=== PATIENT | male | born 1940 | race Caucasian/White ===

== ENCOUNTER 2018-01-08 05:15 | Emergency (ER) | payer MEDICARE ==
[2018-01-08] MEDS ORDERED: NS(*) 0.9% 1000 ML BAG 1,000 ML IV ONE (05:18)
--- NOTE | 2018-01-08 05:18 | ER Report ---
History and Physical Time Seen By MD: 05:18 (RENE SERNA DO) HPI/ROS CHIEF COMPLAINT: Fall, weakness, unable to get up HISTORY OF PRESENT ILLNESS: 77-year-old male with a history of COPD visiting from [place] fell yesterday but was not injured. He proceeded ago and spent time [facility]. He was only complaining of some mild back pain. Last night he got up to go to the bathroom and fell again. Now he's having diarrhea. He fell and was too weak to get up. They called 911 to come pick him up. Patient denies chest pain or shortness of breath. He appears mildly confused. EMS notes he was wearing no oxygen. His room air pulse ox was in the 87-88 range. 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 Patient on arrival is in good spirits and alert and responsive to questions. Will follow simple commands. He does not know the date. He thinks it yesterday. 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 He is prone to falling REVIEW OF SYSTEMS: Respiratory: No cough, no dyspnea. Cardiovascular: No chest pain, no palpitations. Gastrointestinal: As above Musculoskeletal: As above (RENE SERNA DO) Allergies: Coded Allergies: doxycycline (Verified Allergy, Intermediate, ITCHING, 01/08/18) levofloxacin (Verified Allergy, Intermediate, ITCHING, 01/08/18) fluticasone (Verified Adverse Reaction, Intermediate, SEVERE HEADACHE, ) salmeterol (Verified Adverse Reaction, Intermediate, SEVERE HEADACHE, 01/08) codeine (Verified Adverse Reaction, Unknown, CONFUSION, 01/08/18) metoclopramide (Verified Adverse Reaction, Unknown, DIARRHEA, 01/08/18) Home Meds Reported Medications Nortriptyline Hcl (NORTRIPTYLINE HCL) 50 Mg Capsule, 50 MG PO HS, CAPSULE 01/08/18 Lactulose (LACTULOSE) 10 Gm/15 Ml Solution, 10 GM PO BID 01/08/18 Doxazosin Mesylate (DOXAZOSIN MESYLATE) 2 Mg Tablet, 2 MG PO QPM 01/08/18 Divalproex Sodium (DIVALPROEX SODIUM ER) 500 Mg Tab.er.24h, 500 MG PO QAM, TAB 01/08/18 Butalbital/Aspirin/Caffeine (Dmbaps-Iozeksd-Hkqax 50-325-40) 50 Mg-325 Mg-40 Mg Tablet, 1 TAB PO PRN 01/08/18 Budesonide/Formoterol Fumarate (SYMBICORT 160-4.5 MCG INHALER) 10.2 Gm Inh, 2 INHALATION PO BID, INH 01/08/18 Albuterol Sulfate 90 Mcg/Act (PROAIR HFA 90 MCG/ACT) 8.5 Gm Hfa.aer.ad, 1 PUFF IH BID, INHALER 01/08/18 Tramadol Hcl (TRAMADOL HCL) 50 Mg Tablet, 50 MG PO BID, TAB 01/08/18 Tizanidine Hcl (TIZANIDINE HCL) 4 Mg Tablet, 4 MG PO HS 01/08/18 Simvastatin (SIMVASTATIN) 20 Mg Tablet, 20 MG PO HS, TAB 01/08/18 Omeprazole (OMEPRAZOLE) 40 Mg Capsule.dr, 40 MG PO BID, CAP 01/08/18 Ipratropium/Albuterol Sulfate (IPRAT-ALBUT 0.5-3(2.5) MG/3 ML) 3 Ml Ampul.neb, 3 ML IH BID 01/08/18 Gabapentin (GABAPENTIN) 300 Mg Capsule, 400 MG PO TID, CAPSULE 01/08/18 Fluticasone Prop 50 Mcg Ns (FLONASE 50 MCG NS) 16 Gm [place].susp, 1 SPRAY NS BID , BOT 01/08/18 Fexofenadine Hcl (FEXOFENADINE HCL) 180 Mg Tablet, 180 MG PO QDAY 01/08/18 Budesonide (BUDESONIDE) 0.5 Mg/2 Ml Ampul.neb, 0.5 MG IH BID, ML 01/08/18 Azathioprine (AZATHIOPRINE) 50 Mg Tablet, 50 MG PO TID 01/08/18 Aspirin (ASPIR 81) 81 Mg Tablet.dr, 81 MG PO QDAY, TAB 01/08/18 Past Medical/Surgical History COPD, chronic pain syndrome, back pain, hyperlipidemia, GERD, polyneuropathy, immunosuppression, allergic rhinitis (RENE SERNA DO) Reviewed Nurses Notes: Yes Old Medical Records Reviewed: Yes (RENE SERNA DO) Constitutional Vital Sign - Last 24 Hours 01/08/18 01/08/18 01/08/18 01/08/18 05:17 05:29 06:15 07:00 Temp 98.7 Pulse 104 108 104 Resp 17 32 24 B/P (MAP) 136/69 128/62 (84) Pulse Ox 90 95 O2 Delivery Room Air O2 Flow Rate 3.0 01/08/18 01/08/18 01/08/18 01/08/18 07:59 08:30 09:00 09:30 Pulse 105 109 95 96 Resp 18 25 27 32 B/P (MAP) 128/62 (84) 141/93 (109) 132/63 (86) 120/65 (83) Pulse Ox 86 66 O2 Delivery Room Air Intake and Output 01/08/18 01/08/18 01/09/18 15:00 23:00 07:00 Intake Total 1000 ml Balance 1000 ml (NICK QUINTANA MD) Physical Exam General Appearance: The patient is alert, has no immediate need for airway protection and no current signs of toxicity. Vital signs stable, afebrile, pulse ox 90% on 2 L by EMS, there is diarrhea staining on the EMS betting HEENT: Pupils equal and round no injection. TMs normal, oropharynx with moderate erythema, dry appearing mucous membranes Respiratory: Chest is non tender, lungs are clear to auscultation. Distant wheezing and decreased Cardiac: regular rate and rhythm Gastrointestinal: Abdomen is soft and non tender, no masses, bowel sounds normal. Musculoskeletal: Neck: Neck is supple and non tender. No JVD, no lymphadenopathy Extremities have full range of motion and are non tender. No edema, no calf tenderness Skin: No rashes or lesions. DIFFERENTIAL DIAGNOSIS: After history and physical exam differential diagnosis was considered for altered mental status including but not limited to hypoglycemia, hypoxia, CO2 retention, dehydration, infectious process, electrolyte abnormality, head injury and intoxicants. (RENE SERNA DO) Medical Decision Making Data Points Result Diagram: 01/08/18 0621 01/08/18 0621 Laboratory Hematology Test 01/08/18 00:00 01/08/18 05:34 01/08/18 06:21 Urine Color Yellow Urine Clarity Clear Urine pH 6.0 pH (4.8-9.5) Urine Specific [place] 1.023 Urine Protein Negative mg/dL (NEGATIVE) Urine Glucose (UA) Negative mg/dL (NEGATIVE) Urine Ketones Trace mg/dL (NEGATIVE) Urine Blood Negative (NEGATIVE) Urine Nitrite Negative (NEGATIVE) Urine Bilirubin Negative (NEGATIVE) Urine Urobilinogen Negative mg/dL (0.2-1.9) Urine Leukocyte Esterase Negative (NEGATIVE) Urine RBC None /HPF (0-2/HPF) Urine WBC 2 /HPF (0-5/HPF) Urine Squamous Epithelial Cells Moderate /LPF (</=FEW) Urine Bacteria Few /HPF (NONE-FEW) Urine Mucus None /HPF (NONE-FEW) Urine Opiates Screen Negative Urine Barbiturates Screen Negative Ur Tricyclic Antidepressants Screen Positive Urine Phencyclidine Screen Negative Urine Amphetamines Screen Negative Urine Benzodiazepines Screen Negative Urine Cocaine Screen Negative Urine Cannabinoids Screen Negative Whole Blood Glucose 158 mg/DL (75-110) Red Blood Count 4.31 M/uL (4.00-5.60) Mean Corpuscular Volume 90.2 fL (80.0-96.0) Mean Corpuscular Hemoglobin 30.7 pg (26.0-33.0) Mean Corpuscular Hemoglobin Concent 34.1 g/dL (32.0-36.0) Red Cell Distribution Width 15.7 % (11.5-14.5) Mean Platelet Volume 7.7 fL (7.2-11.1) Neutrophils (%) (Auto) 87.8 % (39.4-72.5) Lymphocytes (%) (Auto) 5.5 % (17.6-49.6) Monocytes (%) (Auto) 6.1 % (4.1-12.4) Eosinophils (%) (Auto) 0.1 % (0.4-6.7) Basophils (%) (Auto) 0.5 % (0.3-1.4) Nucleated RBC Relative Count (auto) 0.0 /100WBC Neutrophils # (Auto) 11.3 K/uL (2.0-7.4) Lymphocytes # (Auto) 0.7 K/uL (1.3-3.6) Monocytes # (Auto) 0.8 K/uL (0.3-1.0) Eosinophils # (Auto) 0.0 K/uL (0.0-0.5) Basophils # (Auto) 0.1 K/uL (0.0-0.1) Nucleated RBC Absolute Count (auto) 0.00 K/uL Blood Gas Puncture Site Left radial Blood Gas Patient Temperature 98.7 DEGREES Arterial Blood pH 7.45 (7.35-7.45) Arterial Blood Partial Pressure CO2 35 mmHg (32-37) Arterial Blood Partial Pressure O2 69 mmHg (60-80) Arterial Blood HCO3 25 mmol/L (20-26) Arterial Blood Oxygen Saturation 95 % (92-100) Arterial Blood Base Excess 1.0 mmol/L [place] Test Acceptable Carboxyhemoglobin 0.6 % (< 5.0) Oxygen Liters/Minute 3 l Sodium Level 142 mmol/L (137-145) Potassium Level 3.8 mmol/L (3.5-5.0) Chloride Level 103 mmol/L (98-107) Carbon Dioxide Level 25 mmol/L (22-30) Blood Urea Nitrogen 20 mg/dl (9-21) Creatinine 1.00 mg/dl (0.66-1.25) Glomerular Filtration Rate Calc > 60.0 Random Glucose 116 mg/dl (75-110) Calcium Level 8.2 mg/dl (8.4-10.2) Total Bilirubin 0.6 mg/dl (0.2-1.3) Aspartate Amino Transf (AST/SGOT) 28 U/L (0-35) Alanine Aminotransferase (ALT/SGPT) 20 U/L (0-56) Alkaline Phosphatase 46 U/L (0-126) Ammonia 11 UMOL/L (9-33) Troponin I 0.027 ng/ml Total Protein 6.4 g/dl (6.3-8.2) Albumin 3.7 g/dl (3.5-5.0) Valproic Acid (Depakene) Level < 10.0 ug/ml Serum Alcohol < 10 mg/dl Chemistry Test 01/08/18 00:00 01/08/18 05:34 01/08/18 06:21 Urine Color Yellow Urine Clarity Clear Urine pH 6.0 pH (4.8-9.5) Urine Specific [place] 1.023 Urine Protein Negative mg/dL (NEGATIVE) Urine Glucose (UA) Negative mg/dL (NEGATIVE) Urine Ketones Trace mg/dL (NEGATIVE) Urine Blood Negative (NEGATIVE) Urine Nitrite Negative (NEGATIVE) Urine Bilirubin Negative (NEGATIVE) Urine Urobilinogen Negative mg/dL (0.2-1.9) Urine Leukocyte Esterase Negative (NEGATIVE) Urine RBC None /HPF (0-2/HPF) Urine WBC 2 /HPF (0-5/HPF) Urine Squamous Epithelial Cells Moderate /LPF (</=FEW) Urine Bacteria Few /HPF (NONE-FEW) Urine Mucus None /HPF (NONE-FEW) Urine Opiates Screen Negative Urine Barbiturates Screen Negative Ur Tricyclic Antidepressants Screen Positive Urine Phencyclidine Screen Negative Urine Amphetamines Screen Negative Urine Benzodiazepines Screen Negative Urine Cocaine Screen Negative Urine Cannabinoids Screen Negative Whole Blood Glucose 158 mg/DL (75-110) White Blood Count 12.8 k/uL (4.5-11.0) Red Blood Count 4.31 M/uL (4.00-5.60) Hemoglobin 13.3 g/dL (14.0-18.0) Hematocrit 38.9 % (42.0-52.0) Mean Corpuscular Volume 90.2 fL (80.0-96.0) Mean Corpuscular Hemoglobin 30.7 pg (26.0-33.0) Mean Corpuscular Hemoglobin Concent 34.1 g/dL (32.0-36.0) Red Cell Distribution Width 15.7 % (11.5-14.5) Platelet Count 169 K/uL (150-450) Mean Platelet Volume 7.7 fL (7.2-11.1) Neutrophils (%) (Auto) 87.8 % (39.4-72.5) Lymphocytes (%) (Auto) 5.5 % (17.6-49.6) Monocytes (%) (Auto) 6.1 % (4.1-12.4) Eosinophils (%) (Auto) 0.1 % (0.4-6.7) Basophils (%) (Auto) 0.5 % (0.3-1.4) Nucleated RBC Relative Count (auto) 0.0 /100WBC Neutrophils # (Auto) 11.3 K/uL (2.0-7.4) Lymphocytes # (Auto) 0.7 K/uL (1.3-3.6) Monocytes # (Auto) 0.8 K/uL (0.3-1.0) Eosinophils # (Auto) 0.0 K/uL (0.0-0.5) Basophils # (Auto) 0.1 K/uL (0.0-0.1) Nucleated RBC Absolute Count (auto) 0.00 K/uL Blood Gas Puncture Site Left radial Blood Gas Patient Temperature 98.7 DEGREES Arterial Blood pH 7.45 (7.35-7.45) Arterial Blood Partial Pressure CO2 35 mmHg (32-37) Arterial Blood Partial Pressure O2 69 mmHg (60-80) Arterial Blood HCO3 25 mmol/L (20-26) Arterial Blood Oxygen Saturation 95 % (92-100) Arterial Blood Base Excess 1.0 mmol/L [place] Test Acceptable Carboxyhemoglobin 0.6 % (< 5.0) Oxygen Liters/Minute 3 l Glomerular Filtration Rate Calc > 60.0 Calcium Level 8.2 mg/dl (8.4-10.2) Total Bilirubin 0.6 mg/dl (0.2-1.3) Aspartate Amino Transf (AST/SGOT) 28 U/L (0-35) Alanine Aminotransferase (ALT/SGPT) 20 U/L (0-56) Alkaline Phosphatase 46 U/L (0-126) Ammonia 11 UMOL/L (9-33) Troponin I 0.027 ng/ml Total Protein 6.4 g/dl (6.3-8.2) Albumin 3.7 g/dl (3.5-5.0) Valproic Acid (Depakene) Level < 10.0 ug/ml Serum Alcohol < 10 mg/dl Toxicology Test 01/08/18 00:00 01/08/18 06:21 Urine Opiates Screen Negative Urine Barbiturates Screen Negative Ur Tricyclic Antidepressants Screen Positive Urine Phencyclidine Screen Negative Urine Amphetamines Screen Negative Urine Benzodiazepines Screen Negative Urine Cocaine Screen Negative Urine Cannabinoids Screen Negative Valproic Acid (Depakene) Level < 10.0 ug/ml Serum Alcohol < 10 mg/dl Urinalysis Test 01/08/18 00:00 Urine Color Yellow Urine Clarity Clear Urine pH 6.0 pH (4.8-9.5) Urine Specific [place] 1.023 Urine Protein Negative mg/dL (NEGATIVE) Urine Glucose (UA) Negative mg/dL (NEGATIVE) Urine Ketones Trace mg/dL (NEGATIVE) Urine Blood Negative (NEGATIVE) Urine Nitrite Negative (NEGATIVE) Urine Bilirubin Negative (NEGATIVE) Urine Urobilinogen Negative mg/dL (0.2-1.9) Urine Leukocyte Esterase Negative (NEGATIVE) Urine RBC None /HPF (0-2/HPF) Urine WBC 2 /HPF (0-5/HPF) Urine Squamous Epithelial Cells Moderate /LPF (</=FEW) Urine Bacteria Few /HPF (NONE-FEW) Urine Mucus None /HPF (NONE-FEW) (NICK QUINTANA MD) Microbiology Microbiology Date/Time Source Procedure Growth Status 01/08/18 06:30 Blood Peripheral Draw Blood Culture - Preliminary NO GROWTH SO FAR, SET LATE. REINCUBATED Resulted 01/08/18 06:21 Blood Peripheral Draw Blood Culture - Preliminary NO GROWTH SO FAR, SET LATE. REINCUBATED Resulted (NICK QUINTANA MD) EKG/Imaging EKG Interpretation 12 lead EK Rhythm: Sinus tachycardia, rate 110 bpm [place]: normal QRS: normal ST segments: Diffuse nonspecific ST-T wave changes, no gross evidence of ischemia, no old EKGs for comparison Imaging X-ray: Single view portable chest x-ray was obtained. I viewed the images myself on the PACS system. My interpretation of the images is: No Infiltrate, no effusion, normal mediastinum, there is some fluid or atelectasis in the right midlung field. The radiologist interpretation had no clinically significant variation from this interpretation. (RENE SERNA DO) Imaging HISTORY: Altered mental status and weakness DATE: 01/08/2018 5:18 AM TECHNIQUE: CHEST SINGLE AP COMPARISON: none FINDINGS: The cardiomediastinal silhouette is of normal size and contour. No pleural effusion. No pneumothorax. No consolidation. Minimal right midlung atelectasis and trace left basilar atelectasis. IMPRESSION: Minimal atelectasis but no focal pneumonia. Report Dictated By: Tera Poole MD at 01/08/2018 6:[address] OF THE BRAIN WITHOUT CONTRAST HISTORY: Altered mental status and weakness PROCEDURE: 3.0 mm contiguous axial sections were performed through the brain. Sagittal and coronal reformats were submitted. COMPARISON: None FINDINGS: BRAIN: Brain and intracranial structures: The right-sided cochlear implant results in marked streak artifact. There is mild to moderate diffuse cerebral volume loss with prominence of the frontal extra-axial space but no blood. There is no mass lesion or CT evidence of acute infarct. The ventricles are normal in size. Orbits (included portions): Unremarkable Scalp: Normal. Skull: No acute findings. Paranasal sinuses and mastoid air cells (included portions): The medial maxillary sinus gonzalez have been resected as have many of the ethmoid air cells. There is persistent mild mucosal thickening in the maxillary sinuses and remaining ethmoid sinuses. IMPRESSION: No evidence of acute intracranial abnormality by CT with significant streak artifact from a cochlear implant on the right. One of the following dose optimization techniques was utilized in the performance of this exam: Automated exposure control; adjustment of the mA and/ or kV according to the patient's size; or use of an iterative reconstruction technique. Specific details can be referenced in the facility's radiology CT exam operational policy. Report Dictated By: Tera Poole MD at 01/08/2018 6:36 AM (NICK QUINTANA MD) ED Course/Re-evaluation Clinical Indication for ER IV: Hydration, IV Access ED Course Patient was admitted to an examination room by EMS. H&P was done. The dental diagnoses was considered. Patient was stable vital signs, requiring minimal O2 for saturations in the low 90s. Patient does have a known history of COPD and is from [facility]. Patient's been having episodes of diarrhea. Yesterday he fell and sustained no injury and was able to attend the [facility]. He fell again tonight with generalized weakness. Likely mild dehydration from his diarrhea. He is mildly hypoxic. Patient does have a history of a cochlear implant. Patient voices no chest pain, no shortness of breath, no fever, no chills, no productive cough. Diagnostic evaluation is undertaken. Patient's treated with IV fluid hydration. Care is turned over to Dr. Quintana at shift change with diagnostic studies pending. (RENE SERNA DO) ED Course I reviewed this patient with Dr. Serna at sign out at shift change this morning. This is a 77 year old male. He is having increasing weakness and fell last night and was unable to get up. He is visiting from out of town. He was mildly hypoxic. He and his have been having some diarrhea as well and mildly dehydrated. At sign-out, awaiting the rest of the laboratory studies and re-evaluation. The labs have returned and show a pre-renal picture with a BUN of 20 and Cr of 1.00. Mild elevation of white blood cell count. Normal CT scan and chest x-ray. Reviewed all of this with the patient. He was able to get up to the bathroom. Was a little wobbly, but felt better. After talking with the patient and family , he will be discharged with supplemental oxygen until he gets back to [place] and will rest and increase fluids. Decision to Disposition Date: Jan 08, 2018 Decision to Disposition Time: 08:14 (NICK QUINTANA MD) Depart Departure Latest Vital Signs Vital Signs Date Time Temp Pulse Resp B/P (MAP) Pulse Ox O2 Delivery O2 Flow Rate FiO2 01/08/18 09:30 96 32 120/65 (83) 01/08/18 08:30 66 01/08/18 07:59 Room Air 01/08/18 05:29 3.0 01/08/18 05:17 98.7 (NICK QUINTANA MD) Impression: Primary Impression: Dehydration Additional Impressions: Hypoxia High altitude sickness COPD (chronic obstructive pulmonary disease) Condition: Improved Disposition: HOME OR SELF-CARE Patient Instructions: Dehydration (ED), Hypoxia (ED), Mountain Sickness (ED) Additional Instructions: After evaluation in the ER, it appears that your weakness was likely caused by a couple of things. First, you were found to be dehydrated, which seems to be better with the IV fluids given. This was likely due to the diarrhea that you started having yesterday. Second, you were found to have a low oxygen level, a combination of your COPD and the elevation and thin air here in [place]. We would like to have you rest and increase fluid intake over the next few days while traveling home to [place]. We also would like you to use some supplemental oxygen while traveling and have your doctor re-evaluate you upon returning to [place]. Problem Qualifiers Additional Impressions: High altitude sickness Encounter type: initial encounter Qualified Codes: T70.29XA - Other effects of high altitude, initial encounter COPD (chronic obstructive pulmonary disease) COPD type: unspecified COPD Qualified Codes: J44.9 - Chronic obstructive pulmonary disease, unspecified RENE SERNA DO Jan 08, 2018 05:18 NICK QUINTANA MD Jan 08, 2018 07:15
[2018-01-08] MEDS ORDERED: ASPI-1471 PO (06:30)
[2018-01-08] MEDS ORDERED: AZAT50TA25 PO (06:30)
[2018-01-08] MEDS ORDERED: BUDE0.5A6 IH (06:31)
[2018-01-08] MEDS ORDERED: FEXO180T87 PO (06:31)
[2018-01-08] MEDS ORDERED: FLUT16SP19 NS (06:32)
[2018-01-08] MEDS ORDERED: GABA-549 PO (06:32)
[2018-01-08] MEDS ORDERED: OMEP40CA48 PO (06:34)
[2018-01-08] MEDS ORDERED: IPRA3AMP10 IH (06:34)
[2018-01-08] MEDS ORDERED: TIZA-128 PO (06:35)
[2018-01-08] MEDS ORDERED: SIMV-49 PO (06:35)
[2018-01-08] MEDS ORDERED: TRAM-420 PO (06:36)
[2018-01-08 06:37] LABS: PLATELET COUNT, AUTOMATED 169 K/uL (150-450)
[2018-01-08] MEDS ORDERED: ALBU8.5H IH (06:37)
--- NOTE | 2018-01-08 06:37 | EKG ---
FACILITY: [facility] - [place] PATIENT NAME: SISSY OLIVARES : [id number] MR: [id number] V: [id number] EXAM DATE: ORDERING PHYSICIAN: RENE SORTO TECHNOLOGIST: ARCELIA Test Reason : AMS WEAKNESS Blood Pressure : / mmHG Vent. Rate : 110 BPM Atrial Rate : 110 BPM P-R Int : 128 ms QRS Dur : 078 ms QT Int : 342 ms P-R-T Axes : 014 007 -05 degrees QTc Int : 462 ms Sinus tachycardia Nonspecific ST abnormality Abnormal ECG No previous ECGs available Confirmed by NEL MITTAL ([id number]) on 01/08/2018 6:49:49 AM Referred By: Confirmed By:NEL MITTAL
[2018-01-08] MEDS ORDERED: BUDE10.2 PO (06:38)
[2018-01-08] MEDS ORDERED: DIV500ER PO (06:39)
[2018-01-08] MEDS ORDERED: BUTA1TAB PO (06:39)
[2018-01-08] MEDS ORDERED: DOXA2TAB58 PO (06:40)
[2018-01-08] MEDS ORDERED: NORT50CA40 PO (06:41)
[2018-01-08] MEDS ORDERED: LACT10SO82 PO (06:41)
--- NOTE | 2018-01-08 06:48 | RADIOLOGY IMAGING REPORT ---
FACILITY: [facility] - [place] PATIENT NAME: Kwesi Rogers : 1940 MR: [id number] V: [id number] EXAM DATE: ORDERING PHYSICIAN: RENE SORTO TECHNOLOGIST: Location: [facility] [place] Patient: Kwesi Rogers : 1940 Visit/Account:[id number] Date of Sevice: 01/08/2018 CT OF THE BRAIN WITHOUT CONTRAST HISTORY: Altered mental status and weakness PROCEDURE: 3.0 mm contiguous axial sections were performed through the brain. Sagittal and coronal r eformats were submitted. COMPARISON: None FINDINGS: BRAIN: Brain and intracranial structures: The right-sided cochlear implant results in marked streak artifact . There is mild to moderate diffuse cerebral volume loss with prominence of the frontal extra-axial s pace but no blood. There is no mass lesion or CT evidence of acute infarct. The ventricles are normal in size. Orbits (included portions): Unremarkable Scalp: Normal. Skull: No acute findings. Paranasal sinuses and mastoid air cells (included portions): The medial maxillary sinus gonzalez have be en resected as have many of the ethmoid air cells. There is persistent mild mucosal thickening in the maxillary sinuses and remaining ethmoid sinuses. IMPRESSION: No evidence of acute intracranial abnormality by CT with significant streak artifact from a cochlear implant on the right. One of the following dose optimization techniques was utilized in the performance of this exam: Autom ated exposure control; adjustment of the mA and/or kV according to the patient's size; or use of an i terative reconstruction technique. Specific details can be referenced in the facility's radiology C T exam operational policy. Report Dictated By: Tera Poole MD at 01/08/2018 6:36 AM Report E-Signed By: Tera Poole MD at 01/08/2018 6:43 AM WSN:[id number]
--- NOTE | 2018-01-08 06:49 | RADIOLOGY IMAGING REPORT ---
FACILITY: [facility] PATIENT NAME: Kwesi Rogers : 1940 MR: [id number] V: [id number] EXAM DATE: ORDERING PHYSICIAN: RENE SORTO TECHNOLOGIST: Location[place] [facility] [place] Patient: Kwesi Rogers : 1940 Visit/Account:[id number] Date of Sevice: 01/08/2018 HISTORY: Altered mental status and weakness DATE: 01/08/2018 5:18 AM TECHNIQUE: CHEST SINGLE AP COMPARISON: none FINDINGS: The cardiomediastinal silhouette is of normal size and contour. No pleural effusion. No pne umothorax. No consolidation. Minimal right midlung atelectasis and trace left basilar atelectasis. IMPRESSION: Minimal atelectasis but no focal pneumonia. Report Dictated By: Tera Poole MD at 01/08/2018 6:44 AM Report E-Signed By: Tera Poole MD at 01/08/2018 6:44 AM WSN:[id number]
[2018-01-08 09:30] VITALS: BP 120/65
== END 2018-01-08 09:43 | disposition home or self-care (01) ==
LOC: ER 05:20
DX: T70.29XA Other effects of high altitude, initial encounter (principal); J44.9 Chronic obstructive pulmonary disease, unspecified; R86.0 Abnormal level of enzymes in specimens from male genital organs; R09.02 Hypoxemia
CPT/HCPCS: 36415; 36416; 36600; 80164; 80305; 81001; 82140; 82375; 82803; 82948; 84443; 84484; 85025; 87040; 87088; 93005; 96360; 96361; 99284; G0480; J7030; 70450; 71045; 80320; 82040; 82247; 82310; 82374; 82435; 82565; 82947; 84075; 84132; 84155; 84295; 84450; 84460; 84520

== ENCOUNTER → 2018-01-08 | Outpatient (CLI) | payer MEDICARE ==
[~2018-01-08] MED LIST: ALBU8.5H IH; ASPI-1471 PO; AZAT50TA25 PO; BUDE0.5A6 IH; BUDE10.2 PO; BUTA1TAB PO; DIV500ER PO; DOXA2TAB58 PO; FEXO180T87 PO; FLUT16SP19 NS; GABA-549 PO; IPRA3AMP10 IH; LACT10SO82 PO; NORT50CA40 PO; OMEP40CA48 PO; SIMV-49 PO; TIZA-128 PO; TRAM-420 PO
== END ==
LOC: AMB 04:50
PROVIDERS: ATTEND Nurse Practitioner
DX: R41.82 Altered mental status, unspecified (principal); R53.1 Weakness; R19.7 Diarrhea, unspecified; W01.0XXA Fall on same level from slipping, tripping and stumbling without subsequent striking against object, initial encounter; Z91.81 History of falling; Y92.013 Bedroom of single-family (private) house as the place of occurrence of the external cause
CPT/HCPCS: A0425; A0427